=== PATIENT | female | born 1950 | race Caucasian/White ===

== ENCOUNTER 2017-06-14 12:11 | Inpatient (IN) | payer OTHER, MEDICARE ==
[~2017-06-14] VITALS: Ht 167.6 cm; Wt 66.3 kg
[~2017-06-14 12:11] MED LIST: BACT800T5 PO; CLIN1CAP5 PO; LITH300 PO; LOTR5CAP3 PO
[2017-06-14] MEDS ORDERED: ACETAMINOPHEN 325 MG TAB PO PRN (19:30)
[2017-06-14] MEDS ORDERED: ALUMINUM/MAGNESIUM/SIMETH 30 ML CUP PO PRN (19:30)
[2017-06-14] MEDS ORDERED: MAGNESIUM HYDROXIDE SUSP 30 ML CUP PO PRN (19:30)
[2017-06-14 20:10] VITALS: BP 112/68; PULSE 77; RESP 18; TEMP 98.1
[2017-06-14] MEDS: REMOVE OLD NICOTINE PATCH T-DERMAL SCH (20:35)
[2017-06-15 05:48] VITALS: BP 168/88; PULSE 64; RESP 16; TEMP 98.2; O2SAT 98
--- NOTE | 2017-06-15 08:28 | HHI.HP ---
Provisional Diagnosis Admission Date Jun 14, 2017 at 18:55 [place] I. 1. Bipolar disorder, presently mixed, severe with psychotic features with catatonia Rule out catatonia due to some other psychiatric illness Rule out delirium due to general medical condition Rule out neurological illness with psychiatric manifestations such as seizure [place] II. Deferred Certification of Person's Competence To Provide Express and Informed Consent I have personally examined Chika Plata , a person being served at [facility] on, Jun 15, 2017 08:28. Express and informed consent means consent voluntarily given in writing, by a competent person, after sufficient explanation and disclosure of the subject matter involved to enable the person to make a knowing and willful decision without any element of force, fraud, deceit, duress, or other form of constraint or coercion. This person is 18 years of age or older, is not now known to be incompetent to consent to treatment with a guardian advocate, and does not have a health care surrogate or proxy currently making medical treatment decisions. I have found this person to be one of the following: [] Competent to provide express and informed consent, as defined above, for voluntary admission to this facility and is competent to provide express and informed consent for treatment. He/she has the consistent capacity to make well reasoned, willful, and knowing decisions concerning his or her medical or mental health treatment. The person fully and consistently understands the purpose of the admission for examination/placement and is fully capable of personally exercising all rights assured [place] [x] Incompetent to provide express and informed consent to voluntary admission, and this is incompetent to provide express and informed consent to treatment. The person must be transferred to involuntary status and a petition for a guardian advocate filed with the Circuit Court. [] Refusing to provide express and informed consent to voluntary admission but is competent to provide express and informed consent for treatment. The person must be discharged or transferred to involuntary status. Form shall be completed within 24 hours of a person's arrival at the receiving facility and filed in the clinical record of each person: 1. Admitted on a voluntary basis 2. Permitted to provide express and informed consent to his/her own treatment 3. Allowed to transfer from involuntary to voluntary status 4. Prior to permitting a person to consent to his or her own treatment after having been previously found incompetent to consent to treatment. History of Present Illness Capacity: Lacks Capacity Psych Chief Complaint: AMS/Psychosis HPI Ms. Plata is a 66-year-old female with a history of bipolar illness who presents in transfer from [facility]. Documents from [facility] reviewed. Patient apparently presented there initially to the emergency department with AMS, reportedly increasingly "confused, delusional, paranoid" over the past week per family. She was admitted to the inpatient unit at [facility] and evaluated by Dr. Burris who placed patient under a Mckeon Act. Reviewing our EMR, I see no prior psychiatric contact within our system. Patient seen and examined with nurse. Chart reviewed. Case discussed with nursing staff who reports patient has been wandering the unit, staring and largely non-verbal. She slept only 2 hours last night. On my exam, patient is sitting in her room, staring into space. She exhibits some posturing and lip- smacking movements. She is extremely psychomotor slowed. Negativism is present. She produces little spontaneous speech but will try to respond if asked a specific question. When asked why she has come into the hospital, she says, "I want to have" and then trails off. She appears internally preoccupied and endorses AVH of "something" but cannot describe it in any more detail. When I ask about SI/HI, she reports "I'm having some" before trailing off again. She is awake and able to follow some commands but is oriented to person only. Psychiatric interview is severely limited by her current clinical state, and I am unable to obtain meaningful past psychiatric, family, chemical dependency or social history from this patient for this reason. The patient does not verbalize any physical complaints at this time. Obtained collateral from the patient's , Kelton Plata. He notes that the patient has a history of Bipolar disorder and has been decompensating since the beginning of the month. Outpatient psychiatrist Dr. Gomez tried to change her CBZ to Topamax reportedly, but the patient suffered worsening confusion and so the Topamax was tapered off. He then placed the patient back on her previously efficacious lithium after getting the ok from her stabilizing machine operator, Dr. Corey Bay. However, patient has continued to decompensate. Current meds per are Seroquel 200/50/50/200mg, lithium 150mg BID, amlodipine 5mg daily, calcitriol 0.25mg three times per week and Vitamin D 50,000 units every other week, last dose last week. He knows of no history of stroke or seizure in the patient. She does have a history of knee replacement. Left message for patient's outpatient psychiatrist Dr. Gomez with his audio visual secretary. Review of Systems ROS Limitations: Uncooperative, Psychotic, Poor Historian Other Extremely limited ROS because of patient's mental state currently. Past Psych History Psychological trauma history No reported trauma history to me Violence risk - others (6 mos) Indeterminate. If the patient is indeed catatonic, periods of catatonic excitement can be associated with increased risk for violence. Violence risk - self (6 mos) Concern for elevated risk. Self-care deficit is present. Possible suicidal ideation. Psychotic and unpredictable. Substance Abuse History Drugs/Alcohol past 12 months See above Past Family Social History Coded Allergies: amoxicillin (Unverified Allergy, Severe, rash, 03/02/17) clavulanic acid (Unverified Allergy, Severe, rash, 03/02/17) Past Medical History See electronic medical record Active Scripts Clindamycin Hcl (Clindamycin Hcl) 150 Mg Cap, 2 TAB PO Q8H for 7 Days, CAP Prov:Nathan Thornton MD 04/08/15 Sulfamethoxazole-Trimethoprim DS (Bactrim DS) 1 Tab Tab, 1 TAB PO BID for 7 Days , TAB Prov:Nathan Thornton MD 04/08/15 Reported Medications Amlodipine/benazepril 5-20 mg (Lotrel 5-20 mg) 5 - Cap, 0.5 CAP PO DAILY, 0 Refills TAKE 1 HALF DAILY (2.5/10 MG) 04/09/11 [place] Carbonate (Lithotabs) 300 Mg Cap, 300 MG PO DAILY 04/09/11 Current Medications Medications (Trade) Dose Ordered Sig/Laura Route Start Time Stop Time Status Last Admin (Ativan) 1 mg Q6H PRN PO 06/14/17 19:30 Future Hold (Ativan Inj) 1 mg Q6H PRN IM 06/14/17 19:30 Future Hold (Tylenol) 650 mg Q4H PRN PO 06/14/17 19:30 (Milk Of Magnesia Liq) 30 ml DAILY PRN PO 06/14/17 19:30 (Mag-Al Plus Susp Liq) 30 ml Q6H PRN PO 06/14/17 19:30 (Habitrol 21 Mg Patch.24 Hr) 1 patch DAILY T-DERMAL 06/15/17 09:00 Miscellaneous Information 1 HS T-DERMAL 06/14/17 21:00 Family Psych History See above Social History See above Patient's Strengths (min. 2) In a monitored setting. Verbally fluent. Physical Exam Physical examination completed by ED provider at outside hospital. On my examination today, the patient appears to be in no acute physical distress. I note a mild resting hand tremor. She exhibits some posturing and lip-smacking. She does have some negativism and gegenhalten on exam. Waxy flexibility is not present. She does not appear to have any focal weakness in her arms and legs, but it is difficult to get her to cooperate with assessment. EOMI. Labs and vitals reviewed: Vital Signs Vital Signs Date Time Temp Pulse Resp B/P (MAP) Pulse Ox O2 Delivery O2 Flow Rate FiO2 06/15/17 05:48 98.2 64 16 168/88 (114) 98 Lab Results Laboratories from outside hospital reviewed: CBC reveals mild leukocytosis with white blood cell count of 11.5 CMP reveals decreased GFR at 36 Urinalysis unremarkable Urine toxicology positive for benzodiazepines and the patient's reports that she does have some Valium which she takes rarely but may have had a dose prior to presentation Alcohol level undetectable Counce level 0.[address] performed at outside hospital read as "no aggressive focal intra-axial mass, gross large territory acute CVA or acute intracranial hemorrhage" Mental Status Examination Appearance: Disheveled Consciousness: Other (Stuporous) Orientation: Person Motor Activity: Other (Motor exam as above) Assessment & Plan Problem List: (1) Bipolar disorder, current episode mixed, severe, with psychotic features ICD Codes: F31.64 - Bipolar disorder, current episode mixed, severe, with psychotic features Assessment & Plan 66-year-old female with psychiatric history as detailed above who presents in transfer from outside hospital under a Mckeon act. On my examination today, the patient presents with motor symptoms concerning for catatonia. She also appears internally preoccupied, and it is possible there is an underlying psychotic process at play, possibly related to her history of mood disorder. Differential diagnosis is broad and would include BPAD, mixed with psychosis with catatonia; catatonia due to some other cause (e.g. due to a substance or medication); delirium due to GMC (e.g. uremic delirium, occult infection given mild leukocytosis although this may be related to lithium treatment, etc.); neurological disorder (e.g. seizure given the lip smacking). I will plan to admit patient to inpatient unit for safety, observation, stabilization. --Admit inpatient. Transfer to med psych unit. --Involuntary status. I have completed first opinion. Consult for second opinion. Request healthcare surrogate and guardian advocate. --Initiate medical/neurological workup for causes of altered mental status including MRI brain w/o contrast (given decreased GFR), EEG, CBC, CMP, B12, ammonia, HIV, RPR, TSH, ESR, ADOLPH. Check EKG for QTc. --Consult to neurology to evaluate for possible neurological causes of patient' s symptoms --Dr. Sibley has already consulted hospitalist for medical assessment --I will hold psychotropics for now. I would like to speak with Dr. Gomez about recent med changes before initiating regimen. To consider Ativan challenge for possible catatonia. --Continue amlodipine 5mg daily, calcitriol 0.25mg thrice weekly. Plan to order vitamin D supplement when it would be due next week. --PT consult. --Manager Strategic consult. --Seizure/falls precautions. --Vitals q Shift --Counselor to see and obtain collateral --Dispo planning --ELOS: 7-9 days Discharge Planning Pending psychiatric stabilization. Request HC Surrog/Guard Advoc?: Yes Lanre Randall MD Jun 15, 2017 08:28
[2017-06-15] MEDS: NICOTINE 21 MG/24 HR PATCH T-DERMAL SCH (08:30)
[2017-06-15] MEDS: amLODIPine BESYLATE 5 MG TAB PO SCH (09:00)
[2017-06-15 10:07] LABS: BASOPHIL % 0.3 % (0.0-2.0); EOSINOPHIL % 0.5 % (0.0-4.0); HEMATOCRIT 45.6 % (35.0-46.0); HEMO FLAGS DIFF FINAL; LYMPH % 13.4 % (9.0-44.0); LYMPHOCYTE # 1.2 TH/MM3 (1.0-4.8); MEAN CELL VOLUME 87.3 FL (80.0-100.0); MEAN CORPUSCULAR HEMOGLOBIN 30.1 PG (27.0-34.0); MEAN CORPUSCULAR HGB CONC 34.4 % (32.0-36.0); MONO % 7.7 % (0.0-8.0); NEUT % 78.1 % (16.0-70.0); PLATELET COUNT 225 TH/MM3 (150-450); RED BLOOD COUNT 5.23 MIL/MM3 (4.00-5.30); RED CELL DISTRIBUTION WIDTH 14.9 % (11.6-17.2)
[2017-06-15 10:31] LABS: AST (GOT) 15 U/L (15-37); CHLORIDE 112 MEQ/L (98-107); GLOMERULAR FILTRATION RATE 36 ML/MIN (>89); SODIUM (NA) 146 MEQ/L (136-145)
[2017-06-15 10:35] LABS: WESTERGREN SEDIMENTATION RATE 11 mm/hr (0-30)
[2017-06-15 11:03] LABS: ALKALINE PHOSPHATASE 96 U/L (45-117); ALT (GPT) 31 U/L (10-53); ANION GAP 11 MEQ/L (5-15); BICARBONATE 22.6 MEQ/L (21.0-32.0); BLOOD UREA NITROGEN 23 MG/DL (7-18); HDL CHOLESTEROL 71.4 MG/DL (40.0-60.0); LDL CHOLESTEROL 193 MG/DL (0-99); TOTAL BILIRUBIN ADULT 0.8 MG/DL (0.2-1.0)
--- NOTE | 2017-06-15 11:06 | PD.TTN ---
Patient Problems 1. Discharge planning 2. Medication compliance 3. Knowledge deficit 4. Lack of coping skills Progress Toward Goals Provider Present: Dr. Juan David Randall Provider Input: Dr. Randall's treatment team met to discuss treatment plan, discharge, and medication. Patient continues to present catatonic. Patient is being viewed for seizure activity. Patient at this time meets criteria Nurse(s) Input: Patient's nurse Maryjane reports patient is nonverbal, took medication, answered "Yes" eventually to auditory hallucination. Did not elaborate. Psychiatric Counselors Present: NORY Bae Psych Therapist Input: Patient seen in her room sitting on her bed. Patient made poor eye contact. Patient was not able to communicate to this counselor. Patient did make several attempts but was not able to formulate a sentence. Per patient's nurse patient is medication compliant. Patient will remain on unit until further stablization has occurred. Group Spec/RT/OT/DAVIDSON Present: STUART Gardner Group Spec/RT/OT/DAVIDSON Input: Patient is a new admit. Sandee Fierro Jun 15, 2017 11:06
--- NOTE | 2017-06-15 12:20 | RADRPT ---
EXAM DATE/TIME: 06/15/2017 11:53 [place] COMPARISON: No previous studies available for comparison. INDICATIONS : Psychosis. MEDICAL HISTORY : Hypertension. Renal insufficiency. SURGICAL HISTORY : Hysterectomy. Total knee replacement, right. ENCOUNTER: Initial ACUITY: 2 day PAIN SCORE: 0/10 LOCATION: head TECHNIQUE: Multiplanar, multisequence MRI of the brain was performed without contrast. FINDINGS: CEREBRUM: The ventricles are normal for age. No evidence of midline shift, mass lesion, hemorrhage or acute in farction. No extraaxial fluid collections are seen. The pituitary gland and suprasellar cistern are normal in configuration. WHITE MATTER: No significant signal abnormalities are seen in the white matter. POSTERIOR FOSSA: The cerebellum and brainstem are intact. The 4th ventricle is midline. The cerebellopontine angle is unremarkable. The cerebellar tonsils are normal in position. DIFFUSION IMAGING: No focal areas of restricted diffusion are seen. No evidence of acute infarction. EXTRACRANIAL: The visualized portions of the orbits and paranasal sinuses are unremarkable. CONCLUSION: 1. Unremarkable evaluation of the brain. 2. No evidence of acute infarct, hemorrhage, mass or edema. Frederick Reynoso MD on June 15, 2017 at 12:17 Board Certified Radiologist. This report was verified electronically.
[2017-06-15 13:04] VITALS: BP 182/87; PULSE 60; RESP 24; TEMP 98.3; O2SAT 99
--- NOTE | 2017-06-15 14:00 | PD.PSY.CON ---
Provisional Diagnosis Admission Date Jun 14, 2017 at 18:55 [place] I. 1. Bipolar disorder, presently mixed, severe with psychotic features with catatonia Rule out catatonia due to some other psychiatric illness Rule out delirium due to general medical condition Rule out neurological illness with psychiatric manifestations such as seizure [place] II. Deferred History of Present Illness Service Psychiatry Consult Requested By Dr. Randall Reason for Consult Second opinion petition Mckeon act Primary Care Physician Deangelo Stout MD HPI Ms. Plata is a 66-year-old female with a history of bipolar illness who presents in transfer from [facility]. Documents from [facility] reviewed. Patient apparently presented there initially to the emergency department with AMS, reportedly increasingly "confused, delusional, paranoid" over the past week per family. She was admitted to the inpatient unit at [facility] and evaluated by Dr. Burris who placed patient under a Mckeon Act. Reviewing our EMR, I see no prior psychiatric contact within our system. Patient seen and examined with nurse. Chart reviewed. Case discussed with nursing staff who reports patient has been wandering the unit, staring and largely non-verbal. She slept only 2 hours last night. On my exam, patient is sitting in her room, staring into space. She exhibits some posturing and lip- smacking movements. She is extremely psychomotor slowed. Negativism is present. She produces little spontaneous speech but will try to respond if asked a specific question. When asked why she has come into the hospital, she says, "I want to have" and then trails off. She appears internally preoccupied and endorses AVH of "something" but cannot describe it in any more detail. When I ask about SI/HI, she reports "I'm having some" before trailing off again. She is awake and able to follow some commands but is oriented to person only. Psychiatric interview is severely limited by her current clinical state, and I am unable to obtain meaningful past psychiatric, family, chemical dependency or social history from this patient for this reason. The patient does not verbalize any physical complaints at this time. Obtained collateral from the patient's , Kelton Plata. He notes that the patient has a history of Bipolar disorder and has been decompensating since the beginning of the month. Outpatient psychiatrist Dr. Gomez tried to change her CBZ to Topamax reportedly, but the patient suffered worsening confusion and so the Topamax was tapered off. He then placed the patient back on her previously efficacious lithium after getting the ok from her supervisor leaf [employer], Dr. Corey Bay. However, patient has continued to decompensate. Current meds per are Seroquel 200/50/50/200mg, lithium 150mg BID, amlodipine 5mg daily, calcitriol 0.25mg three times per week and Vitamin D 50,000 units every other week, last dose last week. He knows of no history of stroke or seizure in the patient. She does have a history of knee replacement. Left message for patient's outpatient psychiatrist Dr. Gomez with his secretary specialist. 06/15/17 Above note dictated by Dr. Randall reviewed and agreed with. Patient seen in her room with nurse Sascha and medical student rocael, patient laying very still in her bed that appears to be severe psychomotor retardation. Her eyes are open with a straight ahead gaze. She is not responding to my verbal questions. There is very minimal response at all. With this time also patient being prepped for an EEG. Dr. Randall his signed first opinion petition supporting ERN act. I agree. Patient meets criteria for involuntary psychiatric hospitalization under the ERN act. Thus I'll cosign second opinion petition supporting ERN act Past Family Social History Coded Allergies: amoxicillin (Unverified Allergy, Severe, rash, 03/02/17) clavulanic acid (Unverified Allergy, Severe, rash, 03/02/17) Active Scripts Clindamycin Hcl (Clindamycin Hcl) 150 Mg Cap, 2 TAB PO Q8H for 7 Days, CAP Prov:Nathan Thornton MD 04/08/15 Sulfamethoxazole-Trimethoprim DS (Bactrim DS) 1 Tab Tab, 1 TAB PO BID for 7 Days , TAB Prov:Nathan Thornton MD 04/08/15 Reported Medications Amlodipine/benazepril 5-20 mg (Lotrel 5-20 mg) 5 - Cap, 0.5 CAP PO DAILY, 0 Refills TAKE 1 HALF DAILY (2.5/10 MG) 04/09/11 [place] Carbonate (Lithotabs) 300 Mg Cap, 300 MG PO DAILY 04/09/11 Current Medications Medications (Trade) Dose Ordered Sig/Laura Route Start Time Stop Time Status Last Admin (Ativan) 1 mg Q6H PRN PO 06/14/17 19:30 Future hold (Ativan Inj) 1 mg Q6H PRN IM 06/14/17 19:30 Future hold (Tylenol) 650 mg Q4H PRN PO 06/14/17 19:30 (Milk Of Magnesia Liq) 30 ml DAILY PRN PO 06/14/17 19:30 (Mag-Al Plus Susp Liq) 30 ml Q6H PRN PO 06/14/17 19:30 (Habitrol 21 Mg Patch.24 Hr) 1 patch DAILY T-DERMAL 06/15/17 09:00 Miscellaneous Information 1 HS T-DERMAL 06/14/17 21:00 (Norvasc) 5 mg DAILY PO 06/15/17 09:00 06/15/17 09:00 (Rocaltrol) 0.25 mcg MoWeFr PO 06/16/17 10:00 Patient's Strengths (min. 2) In a monitored setting. Verbally fluent. Physical Exam Vital Signs Vital Signs Date Time Temp Pulse Resp B/P (MAP) Pulse Ox O2 Delivery O2 Flow Rate FiO2 06/15/17 13:04 98.3 60 24 182/87 (118) 99 Lab Results Test 06/15/17 09:10 06/15/17 12:44 White Blood Count 9.0 TH/MM3 Red Blood Count 5.23 MIL/MM3 Hemoglobin 15.7 GM/DL Hematocrit 45.6 % Mean Corpuscular Volume 87.3 FL Mean Corpuscular Hemoglobin 30.1 PG Mean Corpuscular Hemoglobin Concent 34.4 % Red Cell Distribution Width 14.9 % Platelet Count 225 TH/MM3 Mean Platelet Volume 9.5 FL Neutrophils (%) (Auto) 78.1 % Lymphocytes (%) (Auto) 13.4 % Monocytes (%) (Auto) 7.7 % Eosinophils (%) (Auto) 0.5 % Basophils (%) (Auto) 0.3 % Neutrophils # (Auto) 7.0 TH/MM3 Lymphocytes # (Auto) 1.2 TH/MM3 Monocytes # (Auto) 0.7 TH/MM3 Eosinophils # (Auto) 0.0 TH/MM3 Basophils # (Auto) 0.0 TH/MM3 CBC Comment DIFF FINAL Differential Comment Erythrocyte Sedimentation Rate 11 mm/hr Blood Urea Nitrogen 23 MG/DL Creatinine 1.47 MG/DL Random Glucose 101 MG/DL Total Protein 7.9 GM/DL Albumin 4.0 GM/DL Calcium Level 10.3 MG/DL Alkaline Phosphatase 96 U/L Aspartate Amino Transf (AST/SGOT) 15 U/L Alanine Aminotransferase (ALT/SGPT) 31 U/L Total Bilirubin 0.8 MG/DL Sodium Level 146 MEQ/L Potassium Level 4.0 MEQ/L Chloride Level 112 MEQ/L Carbon Dioxide Level 22.6 MEQ/L Anion Gap 11 MEQ/L Estimat Glomerular Filtration Rate 36 ML/MIN Triglycerides Level 63 MG/DL Cholesterol Level 277 MG/DL LDL Cholesterol 193 MG/DL HDL Cholesterol 71.4 MG/DL Cholesterol/HDL Ratio 3.87 RATIO Vitamin B12 Level 810 PG/ML Thyroid Stimulating Hormone 3rd Gen 0.425 uIU/ML HIV (1&2) Antibody NEGATIVE Ammonia 24 MCMOL/L [place] Level 0.2 MEQ/L Mental Status Examination Appearance: Appropriate, Disheveled Consciousness: Other (patient awake with absolutely no response to verbal stimuli) Orientation: Person (unable to ascertain at this time due to patient's unresponsiveness) Motor Activity: Other (Motor exam as above) Speech: Other (patient selectively mute at this time) Language: Other (unable to ascertain due to patient's muteness) Fund of Knowledge: Poor (unable to ascertain due to patient's muteness) Attention and Concentration: Other (patient showing no response to verbal questioning) Memory: Impaired (unable to ascertain due to patient's muteness) Mood: Other (patient significantly psychomotor retarded) Affect: Other (patient significantly psychomotor retarded) Thought Process & Associations: Other (unable to ascertain patient selectively mute) Thought Content: Other (unable to ascertain due to patient selectively mute) Hallucination Type: Other (unable to ascertain patient selectively mute) Delusion Type: Other (able to ascertain due to patient being selectively mute) Suicidal Ideation: No (unable to ascertain patient be of) Suicidal Plan: No (unable to ascertain patient moved) Suicidal Intention: No (unable to ascertain patient) Homicidal Ideation: No (and able to ascertain patient mute) Homicidal Plan: No (unable to ascertain patient mute) Homicidal Intention: No (unable to ascertain patient mute) Insight: Poor (unable to ascertain patient mute) Judgment: Poor (unable to ascertain patient mute) Assessment & Plan Problem List: (1) Bipolar disorder, current episode mixed, severe, with psychotic features ICD Codes: F31.64 - Bipolar disorder, current episode mixed, severe, with psychotic features Assessment & Plan Estimated LOS: days Request HC Surrog/Guard Advoc?: Yes Pramod Byers MD Jun 15, 2017 14:00
[2017-06-15] MEDS ORDERED: PILL SPLITTER OTHER PRN (15:00)
[2017-06-15] MEDS: LITHIUM CARBONATE 300 MG TAB PO SCH ×2 (15:00→23:00)
[2017-06-15] MEDS ORDERED: LORazepam 2 MG/ML VIAL IV ONE (15:00)
[2017-06-15] MEDS: QUEtiapine FUMARATE 200 MG TAB PO SCH ×2 (15:00→23:00)
[2017-06-15] MEDS: LORazepam 2 MG/ML VIAL IM PRN (15:32)
--- NOTE | 2017-06-15 16:12 | PD.CONS ---
HPI Service [facility] Hospitalists Consult Requested By Psychiatric team Reason for Consult Assist in management of medical condition Psychotic episode- medical cause? Primary Care Physician Deangelo Stout MD Diagnoses: (1) Bipolar disorder, current episode mixed, severe, with psychotic features History of Present Illness This is a 66 year old female patient with a past medical history which includes hypertension, bipolar disorder, colitis, osteoarthritis, shingles and possible hepatitis C. Patient is currently catatonic and nonverbal information gathered from prior computerized charting as well as discussion with inpatient psychiatrist and outpatient psychiatrist. It appears that patient has been having worsening psychiatric symptoms described in prior charting as a, "downward spiral," over the past month. Seroquel was recently increased from 200 mg at bedtime to 200 mg twice a day with 50 mg in the afternoon. Patient presented to [facility] was placed under [facility] act and then transferred to [facility]. Patient is currently in inpatient psychiatric center with been consulted to assist in medical management of this psychotic episode. Review of Systems ROS Limitations: Clinical Condition, Psychotic, Poor Historian Past Family Social History Past Medical History hypertension, bipolar disorder colitis osteoarthritis shingles and possible hepatitis C Past Surgical History Hysterectomy knee surgery and colonoscopy Reported Medications Amlodipine 5 mg by mouth daily Calcitriol 0.25 mcg 3 times a week [place] 150 mg by mouth twice a day Seroquel 200 mg by mouth every morning, 50 mg by mouth midday and 2 mg by mouth daily at bedtime Vitamin D 1 capsule 2 times a month Allergies: Coded Allergies: amoxicillin (Unverified Allergy, Severe, rash, 03/02/17) clavulanic acid (Unverified Allergy, Severe, rash, 03/02/17) Active Ordered Medications Current Medications Medications (Trade) Dose Ordered Sig/Laura Route Start Time Stop Time Status Last Admin (Ativan) 1 mg Q6H PRN PO 06/14/17 19:30 Future hold (Ativan Inj) 1 mg Q6H PRN IM 06/14/17 19:30 Future hold (Tylenol) 650 mg Q4H PRN PO 06/14/17 19:30 (Milk Of Magnesia Liq) 30 ml DAILY PRN PO 06/14/17 19:30 (Mag-Al Plus Susp Liq) 30 ml Q6H PRN PO 06/14/17 19:30 (Habitrol 21 Mg Patch.24 Hr) 1 patch DAILY T-DERMAL 06/15/17 09:00 Miscellaneous Information 1 HS T-DERMAL 06/14/17 21:00 (Norvasc) 5 mg DAILY PO 06/15/17 09:00 06/15/17 09:00 (Rocaltrol) 0.25 mcg MoWeFr PO 06/16/17 10:00 (Lithotabs) 150 mg Q8H PO 06/15/17 15:00 (SEROquel) 200 mg Q8H PO 06/15/17 15:00 (NS Flush) 2 ml BID IV FLUSH 06/15/17 21:00 (Pill Splitter) 1 ea UNSCH PRN OTHER 06/15/17 15:00 Sodium Chloride 1,000 ml @ 84 mls/hr [id number] IV 06/15/17 16:15 Family History Patient has 2 daughters with bipolar disorder Social History Patient lives at home with Rare EtOH use No reported tobacco use Physical Exam Vital Signs Vital Signs Date Time Temp Pulse Resp B/P (MAP) Pulse Ox O2 Delivery O2 Flow Rate FiO2 06/15/17 13:04 98.3 60 24 182/87 (118) 99 06/15/17 05:48 98.2 64 16 168/88 (114) 98 06/14/17 20:10 98.1 77 18 112/68 (83) Physical Exam GENERAL: This is a well-nourished, well-developed patient, appears catatonic and non-verbal SKIN: No rashes, ecchymoses or lesions. Cool and dry. HEAD: Atraumatic. Normocephalic. No temporal or scalp tenderness. EYES: Eyes closed fluttering noted CARDIOVASCULAR: Regular rate and rhythm RESPIRATORY: Clear to auscultation. Breath sounds equal bilaterally. GASTROINTESTINAL: Abdomen soft, non-tender, nondistended. MUSCULOSKELETAL: Extremities without clubbing, cyanosis, or edema. No joint tenderness, effusion, or edema noted. No calf tenderness. Negative Homans sign bilaterally. NEUROLOGICAL: Catatonic nonverbal. Hyperreflexia noted Laboratory Laboratory Tests Test 06/15/17 09:10 06/15/17 12:44 White Blood Count 9.0 Red Blood Count 5.23 Hemoglobin 15.7 Hematocrit 45.6 Mean Corpuscular Volume 87.3 Mean Corpuscular Hemoglobin 30.1 Mean Corpuscular Hemoglobin Concent 34.4 Red Cell Distribution Width 14.9 Platelet Count 225 Mean Platelet Volume 9.5 Neutrophils (%) (Auto) 78.1 Lymphocytes (%) (Auto) 13.4 Monocytes (%) (Auto) 7.7 Eosinophils (%) (Auto) 0.5 Basophils (%) (Auto) 0.3 Neutrophils # (Auto) 7.0 Lymphocytes # (Auto) 1.2 Monocytes # (Auto) 0.7 Eosinophils # (Auto) 0.0 Basophils # (Auto) 0.0 CBC Comment DIFF FINAL Differential Comment Erythrocyte Sedimentation Rate 11 Blood Urea Nitrogen 23 Creatinine 1.47 Random Glucose 101 Total Protein 7.9 Albumin 4.0 Calcium Level 10.3 Alkaline Phosphatase 96 Aspartate Amino Transf (AST/SGOT) 15 Alanine Aminotransferase (ALT/SGPT) 31 Total Bilirubin 0.8 Sodium Level 146 Potassium Level 4.0 Chloride Level 112 Carbon Dioxide Level 22.6 Anion Gap 11 Estimat Glomerular Filtration Rate 36 Triglycerides Level 63 Cholesterol Level 277 LDL Cholesterol 193 HDL Cholesterol 71.4 Cholesterol/HDL Ratio 3.87 Vitamin B12 Level 810 Thyroid Stimulating Hormone 3rd Gen 0.425 HIV (1&2) Antibody NEGATIVE Ammonia 24 [place] Level 0.2 Result Diagram: 06/15/17 0910 06/15/17 0910 Imaging Last Impressions Brain MRI 06/15/17 0000 Signed Impressions: Service Date/Time: Thursday, June 15, 2017 11:53 - CONCLUSION: 1. Unremarkable evaluation of the brain. 2. No evidence of acute infarct, hemorrhage, mass or edema. Frederick Reynoso MD Assessment and Plan Problem List: (1) Bipolar disorder, current episode mixed, severe, with psychotic features ICD Codes: F31.64 - Bipolar disorder, current episode mixed, severe, with psychotic features Plan: Bipolar disorder current episode mixed severe with psychotic features Records from for Hospital and reviewed UA reviewed did not indicate UTI Currently patient is afebrile with no leukocytosis TSH 0.4-5, vitamin B12 810, ammonia 24, RPR pending, and a pending HIV-1 antibodies negative Patient is currently nonverbal unable to take by mouth intake Will start IV fluids D5 half-normal saline at 84 cc/h Patient appears catatonic. Psychiatry has chosen Ativan trial Patient's symptoms worsened after increasing Seroquel. Also during psychiatric evaluation lip smacking was noted. Recommend holding Seroquel If Ativan trial does not improve current state recommend Cogentin versus Benadryl. Recheck BMP in a.m. Recommended DC IV fluids once patient is able to take by mouth Dr. Ramirez discussed case with outpatient psychiatrist Dr. Gomez Hypertension Resume patient's amlodipine 5 mg by mouth daily when she is able to take by mouth IV Vasotec as needed Monitor blood pressure trend Patient examined. Assessment and plan formulated with Kamilla Maki PA-C. I agree with the above. Pt with bipolar d/o. Under the care of Dr Gomez outpt. Her seroquel had been titrating up. He noted some Tardive dyskinesia sx's in the office. She presented to [place] and moved to [place]. Pt has been in a catatonic state. verbally unreponsive.blepharospams noted. eyes rolled back in head. not following commands. neck supple. possible mild UE cogwheeling. Hyperreflexia noted in all extemities. no babinskin or clonus. No rash or injury. Heart reg. Lung cta. abd s/bs/nd After discussing with doctor Jason...He and dr Randall will give a trial of ativan for possible catatonia related to her bipolar d/o. If that fails I would consider giving some iv benadryl or cogentin for possible seroquel related catatonia. At present I see no evidence for infection , metabolic disturbance, no proof of acute cva. I note neurology is consulted and eeg pending. f/u pending studies. ivf until taking po. prn bp meds ordered. otherwise I see no autonomic instablility at the moment. (2) HTN (hypertension) ICD Codes: I10 - Essential (primary) hypertension Kamilla Maki Jun 15, 2017 16:12 Shaka Ramirez MD Jun 15, 2017 19:39
[2017-06-15] MEDS ORDERED: SODIUM CHLOR 0.45% 1000 ML INJ 1,000 ML IV SCH (16:15)
[2017-06-15] MEDS: DEXT 5%-NACL 0.45% 1000 ML INJ 1,000 ML IV SCH (16:30)
[2017-06-15] MEDS ORDERED: ENALAPRILAT 1.25 MG/ML VIAL IV PUSH PRN (17:45)
[2017-06-15] MEDS ORDERED: cloNIDine HCL 0.1 MG TAB PO PRN (17:45)
--- NOTE | 2017-06-15 19:14 | MB ---
cc: GUILLERMINA ERVIN MD DATE OF CONSULTATION 06/15/17 She is a 66 year old seen in neurological consultation because of altered mentation. She was admitted to the psychiatric unit with confusion and delusional and paranoid behavior. She was previously treated in the hospital in [place]. There is a history of bipolar disorder but apparently no major psychiatric problems before. The only history I observed is what is in the chart. It appears that she has been going downhill for the past month. She follows with her psychiatrist and she was on Carbamazepine and Topamax, then the Topamax was also discontinued. There is a history of [place] usage in the past. Currently, she came in taking Seroquel that appears to be a total of 500 mg a day, lithium 150 twice a day, also on blood pressure medications. Other evaluations reviewed. I spoke to the nursing staff briefly. NEUROLOGIC EXAM: Neurologic exam showed the patient to be asleep but easily awakened. She was in no distress. She established some eye contact, maintained eyes open. She verbalized occasionally a very low level that was very hard to understand her. Initially she said, "I am happy and she came up with this without any obvious inquiry". She could not answer to me about her age, but then at some point she started saying something about "losing children". She also started saying that she has two children, but it was hard to understand and get anymore information from her. Often, she did not finish a phrase. She moved all four extremities spontaneously and also with some request. 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 Her motor exam is grossly nonfocal with some generalized weakness but mild. Reflexes were 1-2+ including the ankles and plantar responses were flexor. IMAGING STUDIES An MRI brain was unremarkable. LABORATORY DATA Other labs reviewed including metabolic data. BUN 23, creatinine 1.47, sodium 146, potassium 4.0, WBC 9.0. ASSESSMENT Acute encephalopathy in association with psychiatric decline for the past few weeks. Labs were reviewed as well as the MRI of brain as discussed. She may have improved with some Ativan, suspiciously, of a semi catatonic state. I will request the CPK as well. Apparently, Seroquel on hold. She is afebrile. Moderately elevated blood pressure. I will follow the neurological course. Thank you for asking us to assist in her care. MD CHERRI Hansen /5:56 PM /6:58 PM
[2017-06-15 19:45] VITALS: BP 168/80; PULSE 68; RESP 17; TEMP 97.7; O2SAT 100
--- NOTE | 2017-06-15 19:59 | EKG ---
Date Performed: 06/15/2017 Time Performed: 17:21:54 PTAGE: 66 years EKG: Baseline artifact present Sinus rhythm NORMAL ECG No significant change from prior electrocardiogram. PREVIOUS TRACING : 03/30/1996 10.22 DOCTOR: Crow Bryant Interpretating Date/Time 06/15/2017 19:57:53
--- NOTE | 2017-06-15 20:24 | MG ---
cc: FREDERICK GRESHAM MD Lab No: [id number] Date: 06/15/17 Age: Sex: F Race: 1950 A 66-year-old female with confusion, speech impairment, bizarre behavior. A lot of ___kinetic chewing artifact noted. Posterior rhythm demonstrates 4-6 Hz activity, a lot of myogenic muscle tension artifact. Limited driving with photic stimulation. Single lead EKG showing sinus rhythm. INTERPRETATION Appearance of at least mild level of encephalopathy with significant amount of myogenic artifact throughout the recording. No obvious epileptic activity. Clinical correlation. MD GUMARO Jolley/ /7:46 PM /8:09 PM
[2017-06-15] MEDS: SODIUM CHLORIDE 0.9% FLUSH 5 ML FLUSH IV FLUSH SCH (21:00)
[2017-06-15] MEDS: REMOVE OLD NICOTINE PATCH T-DERMAL SCH (21:00)
[2017-06-16] MEDS: LORazepam 2 MG/ML VIAL IM PRN ×2 (00:49→11:06)
[2017-06-16] MEDS: DEXT 5%-NACL 0.45% 1000 ML INJ 1,000 ML IV SCH ×2 (04:25→16:20)
[2017-06-16 05:00] VITALS: BP 137/81; PULSE 76; RESP 18; O2SAT 97
[2017-06-16] MEDS: LITHIUM CARBONATE 300 MG TAB PO SCH ×3 (07:00→20:46)
--- NOTE | 2017-06-16 08:02 | HHI.PYPN ---
Subjective Chief Complaint: AMS/Psychosis Remarks Patient seen and examined with nurse. Chart reviewed. I see possible late response to Ativan challenge noted in nursing notes. I note patient was unable to receive evening dose of psychotropics reportedly related to being asleep. Case discussed with nursing staff. Patient's PO intake remains quite poor per nursing staff. On my exam, I find the patient sitting in her room with an uneaten meal tray beside her. She is more interactive today and is asking for something to drink. I have asked nurse to have tech assist patient with taking meals and drinking. Ongoing marked thought blocking noted. She remains disheveled and appears to have a self-care deficit. She is oriented to person and year only. She repeats the beginning of phrases but struggles to complete them, e.g. "I feel like, I feel like, I feel like, I feel like I need something to drink." She denies AVH but remains internally preoccupied. She is unable to deny SI/HI and remains unreliable to contract for safety in her current psychiatric state. She denies side effects from psychotropics. No acute physical complaints. Review of Systems ROS Limitations: Psychotic, Poor Historian Except as stated in HPI: all other systems reviewed are Neg Mental Status Examination Appearance: Disheveled Consciousness: Alert Orientation: Person, Date/Time (year) Motor Activity: Other (Motor exam as below.) Speech: Hesitant, Slow Language: Perseveration Fund of Knowledge: Adequate (Difficult to assess because of psych symptoms.) Attention and Concentration: Inadequate Mood: Other (dysphoric) Affect: Flat Thought Process & Associations: Other (Markedly slowed) Thought Content: Thought blocking Hallucination Type: Other (Denies AVH but appears int stim) Delusion Type: None Suicidal Ideation: No (unreliable to contract for safety) Homicidal Ideation: No (unreliable to contract for safety) Insight: Poor Judgment: Poor Mental Status Exam Remarks Motor exam: Mild bilateral resting hand tremor but no cog-wheeling, no dystonias, no dyskinesias. No UE rigidity. Mild LE increased tone with several beats of clonus, perhaps pathologic clonus, in the ankle L>R. No ocular clonus or hippus. Results Labs Item Value Date Time White Blood Count 9.0 TH/MM3 06/15/17 0910 Hemoglobin 15.7 GM/DL H 06/15/17 0910 Platelet Count 225 TH/MM3 06/15/17 0910 Sodium Level 146 MEQ/L H 06/15/17 0910 Potassium Level 4.0 MEQ/L 06/15/17 0910 Chloride Level 112 MEQ/L H 06/15/17 0910 Carbon Dioxide Level 22.6 MEQ/L 06/15/17 0910 Blood Urea Nitrogen 23 MG/DL H 06/15/17 0910 Creatinine 1.47 MG/DL H 06/15/17 0910 Estimat Glomerular Filtration Rate 36 ML/MIN L 06/15/17 0910 Random Glucose 101 MG/DL 06/15/17 0910 Aspartate Amino Transf (AST/SGOT) 15 U/L 06/15/17 0910 Alanine Aminotransferase (ALT/SGPT) 31 U/L 06/15/17 0910 Alkaline Phosphatase 96 U/L 06/15/17 0910 Ammonia 24 MCMOL/L 06/15/17 1244 Vitamin B12 Level 810 PG/ML 06/15/17 0910 Thyroid Stimulating Hormone 3rd Gen 0.425 uIU/ML 06/15/17 0910 [place] Level 0.2 MEQ/L L 06/15/17 1244 HIV (1&2) Antibody NEGATIVE 06/15/17 0910 Labs reviewed. Decreased GFR and sub-therapeutic lithium level main clinically significant abnormalities. Awaiting HgbA1c, RPR, ADOLPH. Neuro has also ordered CK. Last Impressions Brain MRI 06/15/17 0000 Signed Impressions: Service Date/Time: Thursday, June 15, 2017 11:53 - CONCLUSION: 1. Unremarkable evaluation of the brain. 2. No evidence of acute infarct, hemorrhage, mass or edema. Frederick Reynoso MD EEG read as mild encephalopathy. EKG NSR, QTcH 442ms. Vitals/IOs Vital Signs Date Time Temp Pulse Resp B/P (MAP) Pulse Ox O2 Delivery O2 Flow Rate FiO2 06/16/17 05:00 76 18 137/81 (99) 97 06/15/17 19:45 97.7 Intake and Output 06/16/17 06/16/17 06/17/17 08:00 16:00 00:00 Intake Total 120 ml Balance 120 ml Assessment & Plan Problem List: (1) Bipolar disorder, current episode mixed, severe, with psychotic features ICD Codes: F31.64 - Bipolar disorder, current episode mixed, severe, with psychotic features Assessment & Plan Ddx: BPAD mixed with psychosis +/- catatonia (although catatonia perhaps somewhat less likely as patient is more responsive today, and I do not suspect this is residual effect from single dose of Ativan). Delirium due to GMC (dehydration perhaps, now improved with IVF). Medication side effect (Minimal tremor on exam but LE increased tone and clonus concerning for possible NMS). EEG not supportive of seizure. MRI brain not supportive of structural EMERGENCY DEPARTMENT DIRECTOR lesion. Patient is marginally more responsive today. She has an ongoing self-care deficit as a consequence of her acute illness and is taking poor PO. Condition overall remains tenuous and psychopharmacologic pathway forward is very complex owing to renal impairment on the one hand and concern for possible antipsychotic side effect on the other. --Hold Seroquel for now. Follow-up CK ordered by neuro [update: wnl at 80], and I will check serum iron, which can be decreased in NMS. There is no leukocytosis. BP improved this morning, and there are no other signs of autonomic instability. No fever. --Continue lithium 150mg q8h. Check interval lithium level and BMP tomorrow and continue to trend these values closely given underlying CKD. --Patient is more responsive today, but we still could consider scheduling some parenteral Ativan for catatonia if she lapses back into stuporous state. --Encourage mobilization, encourage PO intake and staff to assist with feeding and hygiene. --Neuro and hospitalist input noted and appreciated. --Continue to monitor on [facility] unit. Continue other meds and care as ordered. --I will return to see patient on afternoon round. Justification for Cont. Inpt. Impairment in self-care. Med changes. Complicating conditions. Very high risk for decompensation in less restrictive environment. Discharge Planning Pending psychiatric stabilization. Original ELOS perhaps a little optimistic, but may still be feasible depending on hospital course over next few days. Request HC Surrog/Guard Advoc?: Yes Lanre Randall MD Jun 16, 2017 08:02
--- NOTE | 2017-06-16 08:29 | HHI.PR ---
Subjective Remarks pt eating breakfast awake but unable to hold conversation. Objective Vitals awake eating unable to finish sentences. mumbles nad. no labored breathing heart reg lung cta abd s/nt ext no edema no blepharospasm today. hyperreflexia. Vital Signs Date Time Temp Pulse Resp B/P (MAP) Pulse Ox O2 Delivery O2 Flow Rate FiO2 06/16/17 05:00 76 18 137/81 (99) 97 06/15/17 19:45 97.7 68 17 168/80 (109) 100 06/15/17 13:04 98.3 60 24 182/87 (118) 99 Result Diagram: 06/15/17 0910 06/15/17 0910 Imaging Last Impressions Brain MRI 06/15/17 0000 Signed Impressions: Service Date/Time: Thursday, June 15, 2017 11:53 - CONCLUSION: 1. Unremarkable evaluation of the brain. 2. No evidence of acute infarct, hemorrhage, mass or edema. Frederick Reynoso MD A/P Problem List: (1) Bipolar disorder, current episode mixed, severe, with psychotic features ICD Codes: F31.64 - Bipolar disorder, current episode mixed, severe, with psychotic features Plan: Bipolar disorder current episode mixed severe with psychotic features Pt with bipolar d/o. Under the care of Dr Gomez outpt. Her seroquel had been titrating up. He noted some Tardive dyskinesia sx's in the office. She presented to [place] and moved to [place]. Pt had been in a catatonic state. during our initial evaluation pt was verbally unreponsive. blepharospams noted. eyes rolled back in head. not following commands. neck supple. possible mild UE cogwheeling. Hyperreflexia noted in all extemities. no babinskin or clonus. No rash or injury. Heart reg. Lung cta. abd s/bs/nd After discussing with doctor Jason...He and dr Randall will give a trial of ativan for possible catatonia related to her bipolar d/o. If that fails I would consider giving some iv benadryl or cogentin for possible seroquel related catatonia. At present I see no evidence for infection , metabolic disturbance, no proof of acute cva. I note neurology is consulted.. eeg neg for sz. otherwise I see no autonomic instablility at the moment. Records from [facility] and reviewed UA reviewed did not indicate UTI. uds only benzos..she took vallium x 1. TSH 0.4-5, vitamin B12 810, ammonia 24, RPR pending, and a pending HIV-1 antibodies negative today pt more awake. eating breakfast. still mumbling and not completing her sentences. At present her condition appears related to her underlying psych illness vs medication. Again still no obvious metabolic/infectious abnormality to explain. no evidence of cva or sz. will support with ivf until taking adequate po. po/iv prn bp meds ordered. (2) HTN (hypertension) ICD Codes: I10 - Essential (primary) hypertension Status: Chronic Shaka Ramirez MD Jun 16, 2017 08:29
[2017-06-16] MEDS: SODIUM CHLORIDE 0.9% FLUSH 5 ML FLUSH IV FLUSH SCH ×2 (09:00→20:10)
[2017-06-16] MEDS: amLODIPine BESYLATE 5 MG TAB PO SCH (09:00)
[2017-06-16] MEDS: NICOTINE 21 MG/24 HR PATCH T-DERMAL SCH (09:00)
[2017-06-16] MEDS: CALCITRIOL 0.25 MCG CAP PO SCH (09:33)
[2017-06-16 17:39] LABS: HEMOGLOBIN A1a 0.9 %; HEMOGLOBIN Ao 85.9 %; HEMOGLOBIN F 0.9 %; HEMOGLOBIN LA1C 1.8 %; HEMOGLOBIN P3 3.9 %
[2017-06-16 17:45] VITALS: BP 135/69; PULSE 82; RESP 17; TEMP 98.3; O2SAT 95
--- NOTE | 2017-06-16 19:43 | HHI.PR ---
Review/Management Daily Summary 06/16 much better face expression this evening, eating and talking some simple words and phrases moves limbs well and walking per staff likely psychiatric related encephalopathy, no other neuro intervention please call prn Subjective Subjective Comments No acute events reported No headache No chest pain No dyspnea Active Medications Current Medications Medications (Trade) Dose Ordered Sig/Laura Route Start Time Stop Time Status Last Admin (Ativan) 1 mg Q6H PRN PO 06/14/17 19:30 Future hold (Ativan Inj) 1 mg Q6H PRN IM 06/14/17 19:30 Future hold 06/16/17 11:06 (Tylenol) 650 mg Q4H PRN PO 06/14/17 19:30 (Milk Of Magnesia Liq) 30 ml DAILY PRN PO 06/14/17 19:30 (Mag-Al Plus Susp Liq) 30 ml Q6H PRN PO 06/14/17 19:30 (Habitrol 21 Mg Patch.24 Hr) 1 patch DAILY T-DERMAL 06/15/17 09:00 Miscellaneous Information 1 HS T-DERMAL 06/14/17 21:00 (Norvasc) 5 mg DAILY PO 06/15/17 09:00 06/16/17 09:00 (Rocaltrol) 0.25 mcg MoWeFr PO 06/16/17 10:00 06/16/17 09:33 (Lithotabs) 150 mg Q8H PO 06/15/17 15:00 06/16/17 15:00 (SEROquel) 200 mg Q8H PO 06/15/17 15:00 Future Hold 06/15/17 15:00 (NS Flush) 2 ml BID IV FLUSH 06/15/17 21:00 (Pill Splitter) 1 ea UNSCH PRN OTHER 06/15/17 15:00 Dextrose/Sodium Chloride 1,000 ml @ 84 mls/hr [id number] IV 06/15/17 16:30 06/16/17 16:20 (Catapres) 0.1 mg Q6H PRN PO 06/15/17 17:45 (Vasotec Inj) 1.25 mg Q6H PRN IV PUSH 06/15/17 17:45 Allergies Allergies Coded Allergies amoxicillin (Unverified Allergy, Severe, rash, 03/02/17) clavulanic acid (Unverified Allergy, Severe, rash, 03/02/17) Exam I&O / VS 06/16/17 06/16/17 06/17/17 15:00 23:00 07:00 Intake Total 540 ml 660 ml Balance 540 ml 660 ml Intake Oral 540 ml 660 ml # Voids 3 Vital Signs Date Time Temp Pulse Resp B/P (MAP) Pulse Ox O2 Delivery O2 Flow Rate FiO2 06/16/17 17:45 98.3 82 17 135/69 (91) 95 06/16/17 05:00 76 18 137/81 (99) 97 06/15/17 19:45 97.7 68 17 168/80 (109) 100 Objective Micro and Labs Laboratory Tests Test 06/16/17 07:00 Iron Level 59 Total Creatine Kinase 80 Shen Lopez MD Jun 16, 2017 19:43
[2017-06-16] MEDS: REMOVE OLD NICOTINE PATCH T-DERMAL SCH (20:12)
[2017-06-17] MEDS: DEXT 5%-NACL 0.45% 1000 ML INJ 1,000 ML IV SCH (04:15)
[2017-06-17 06:04] VITALS: BP 140/75; PULSE 69; RESP 17; TEMP 97.6; O2SAT 99
[2017-06-17] MEDS: LITHIUM CARBONATE 300 MG TAB PO SCH ×3 (06:17→23:12)
[2017-06-17] MEDS: amLODIPine BESYLATE 5 MG TAB PO SCH (08:57)
[2017-06-17] MEDS: NICOTINE 21 MG/24 HR PATCH T-DERMAL SCH (08:59)
[2017-06-17] MEDS: SODIUM CHLORIDE 0.9% FLUSH 5 ML FLUSH IV FLUSH SCH ×2 (08:59→21:00)
[2017-06-17 10:39] LABS: BICARBONATE 25.3 MEQ/L (21.0-32.0); POTASSIUM 3.4 MEQ/L (3.5-5.1)
--- NOTE | 2017-06-17 12:05 | HHI.PYPN ---
Subjective Chief Complaint: AMS/Psychosis Remarks Patient seen and examined with nurse. Daughter and also at the bedside and patient has no objections to their remaining present for the interview. Chart reviewed. Case discussed with nursing staff. On my examination today, patient once again seems more responsive. She is feeding herself. 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 She seems to feel quite guilty about this. She tells me that she needs to "repent my sins for not telling the truth. " does note that patient is a [employer] but agrees that patient's current guilt is likely in excess of what might be expected from patient normally. She denies SI. Denies AVH. No reported side effects from medications. No physical complaints. Extensive discussion with patient and family regarding pharmacotherapeutic options going forward as well as hospital course so far. After discussion of the R/B/A of pharmacotherapeutic options, we agree to a trial of low-dose Zyprexa at bedtime for probable psychotic symptoms in the setting of patient's mood episode. Review of Systems ROS Limitations: Psychotic, Poor Historian Except as stated in HPI: all other systems reviewed are Neg Mental Status Examination Appearance: Disheveled Consciousness: Alert Orientation: Person, Place ([facility]), Date/Time (May,) Motor Activity: Other (no hand tremor, no cogwheeling, no dystonias, no dyskinesias noted. No other motor abnormalities appreciated although the patient does remain psychomotor slowed.) Speech: Slow Language: Perseveration (a little less so) Fund of Knowledge: Adequate Attention and Concentration: Adequate Mood: Other (remains dysphoric) Affect: Blunt Thought Process & Associations: Other (slowed) Thought Content: Thought blocking Hallucination Type: None Delusion Type: Other (morbid guilt) Suicidal Ideation: No (unreliable to contract for safety) Homicidal Ideation: No (unreliable to contract for safety) Insight: Poor Judgment: Poor Results Labs Test 06/17/17 09:52 Blood Urea Nitrogen 23 MG/DL Creatinine 1.53 MG/DL Random Glucose 125 MG/DL Calcium Level 9.9 MG/DL Sodium Level 143 MEQ/L Potassium Level 3.4 MEQ/L Chloride Level 109 MEQ/L Carbon Dioxide Level 25.3 MEQ/L Anion Gap 9 MEQ/L Estimat Glomerular Filtration Rate 34 ML/MIN [place] Level 0.6 MEQ/L Labs reviewed. GFR stable. [place] level at the lower end of therapeutic range , but this is likely artificially elevated given that the lab was obtained about 3.5 hours after last dose. Vitals/IOs Vital Signs Date Time Temp Pulse Resp B/P (MAP) Pulse Ox O2 Delivery O2 Flow Rate FiO2 06/17/17 06:04 97.6 69 17 140/75 (96) 99 Intake and Output 06/17/17 06/17/17 06/18/17 08:00 16:00 00:00 Intake Total 520 ml Balance 520 ml Assessment & Plan Problem List: (1) Bipolar disorder, current episode mixed, severe, with psychotic features ICD Codes: F31.64 - Bipolar disorder, current episode mixed, severe, with psychotic features Assessment & Plan Add Zyprexa 2.5mg qHS for psychotic symptoms. Continue lithium as ordered, but we will likely titrate this tomorrow for additional mood stabilization and to bring level within therapeutic range. Continue to trend lithium level and BMP. Neuro and hospitalist input appreciated. Continue to monitor on the medical psychiatric unit. Continue other medications and care as ordered. Justification for Cont. Inpt. Med changes. Risk for decompensation and less restrictive environment. Impairment in self-care. Impairment in reality construction. Discharge Planning Pending psychiatric stabilization Request HC Surrog/Guard Advoc?: Yes Lanre Randall MD Jun 17, 2017 12:05
[2017-06-17 18:14] VITALS: BP 152/74; PULSE 75; RESP 16; TEMP 98.3; O2SAT 98
[2017-06-17] MEDS ORDERED: OLANZapine 2.5 MG TAB PO SCH (21:00)
[2017-06-17] MEDS: REMOVE OLD NICOTINE PATCH T-DERMAL SCH (21:00)
[2017-06-18 06:11] VITALS: BP 147/86; PULSE 76; RESP 16; TEMP 97.8; O2SAT 99
[2017-06-18] MEDS: LITHIUM CARBONATE 300 MG TAB PO SCH ×3 (07:00→21:04)
--- NOTE | 2017-06-18 07:57 | HHI.PYPN ---
Subjective Chief Complaint: AMS/Psychosis Remarks Patient seen and examined. Chart reviewed. Case discussed in treatment team. On my examination today, the patient is able to speak in complete sentences. She tells me "I'm ok, but I'd like to reach my family to tell them I love them and hope to see them." She says that she has been trying to remember her family 's birthdays. Mood is "ok" although the patient continues to report morbid guilt. She notes "I feel very apologetic for not being able to say." She denies any SI or violent thoughts. Remains psychomotor slowed, although this is improving. Grooming likewise improved. Denies side effects from medications. No physical complaints. Review of Systems ROS Limitations: Psychotic, Poor Historian Except as stated in HPI: all other systems reviewed are Neg Mental Status Examination Appearance: Disheveled (grooming improving) Consciousness: Alert Orientation: Person, Place ([facility]), Date/Time (June,) Motor Activity: Other (remains a little psychomotor slowed but no hand tremor, no cogwheeling, no other motor abnormalities noted.) Speech: Slow Language: Adequate Fund of Knowledge: Adequate Attention and Concentration: Adequate Mood: Other ("okay") Affect: Blunt (somewhat dysphoric) Thought Process & Associations: Other (slowed but less so today versus yesterday) Thought Content: Thought blocking (lessening) Hallucination Type: None Delusion Type: Other (ongoing morbid guilt) Suicidal Ideation: No (unreliable to contract for safety) Homicidal Ideation: No (unreliable to contract for safety) Insight: Poor Judgment: Poor Results Labs Test 06/17/17 09:52 Blood Urea Nitrogen 23 MG/DL Creatinine 1.53 MG/DL Random Glucose 125 MG/DL Calcium Level 9.9 MG/DL Sodium Level 143 MEQ/L Potassium Level 3.4 MEQ/L Chloride Level 109 MEQ/L Carbon Dioxide Level 25.3 MEQ/L Anion Gap 9 MEQ/L Estimat Glomerular Filtration Rate 34 ML/MIN [place] Level 0.6 MEQ/L Labs reviewed. Hypokalemia repleted. Vitals/IOs Vital Signs Date Time Temp Pulse Resp B/P (MAP) Pulse Ox O2 Delivery O2 Flow Rate FiO2 06/18/17 06:11 97.8 76 16 147/86 (106) 99 Intake and Output 06/18/17 06/18/17 06/19/17 08:00 16:00 00:00 Intake Total 0 ml Balance 0 ml Assessment & Plan Problem List: (1) Bipolar disorder, current episode mixed, severe, with psychotic features ICD Codes: F31.64 - Bipolar disorder, current episode mixed, severe, with psychotic features Assessment & Plan Patient remains severely decompensated with respect to her presenting psychiatric illness, although she is improving with treatment. Titrate Zyprexa to 5 mg at bedtime to target psychotic symptoms. Follow-up lithium level and BMP in the morning. Weekend rounding physician, please consider titrating lithium by 150mg (i.e. to 600mg total daily dose) if level remains subtherapeutic so long as renal function has not significantly worsened. I will check another lithium level and BMP Wednesday morning. I have asked the nursing staff to encourage mobilization. Continue to monitor on the inpatient unit. Continue other medications and care as ordered. Justification for Cont. Inpt. Impairment in self-care. Medication changes. High risk for decompensation in less restrictive environment. Discharge Planning Pending psychiatric stabilization Request HC Surrog/Guard Advoc?: Yes Lanre Randall MD Jun 18, 2017 07:57
[2017-06-18] MEDS: NICOTINE 21 MG/24 HR PATCH T-DERMAL SCH (09:00)
[2017-06-18] MEDS: SODIUM CHLORIDE 0.9% FLUSH 5 ML FLUSH IV FLUSH SCH ×2 (09:00→20:53)
[2017-06-18] MEDS ORDERED: POTASSIUM CHLORIDE 20 MEQ CONTROLLED RELEASE TAB PO ONE (09:00)
[2017-06-18] MEDS: CALCITRIOL 0.25 MCG CAP PO SCH (09:33)
[2017-06-18] MEDS: amLODIPine BESYLATE 5 MG TAB PO SCH (09:33)
--- NOTE | 2017-06-18 16:01 | PD.TTN ---
Patient Problems 1. Discharge planning 2. Medication compliance 3. Knowledge deficit 4. Lack of coping skills Progress Toward Goals Provider Present: Dr. Juan David Randall Provider Input: Dr. Randall's treatment team met to discuss treatment plan, discharge, and medication. Patient continues to present catatonic. Patient is being viewed for seizure activity. Patient at this time meets criteria Nurse(s) Input: Patient's nurse Maryjane reports patient is nonverbal, took medication, answered "Yes" eventually to auditory hallucination. Did not elaborate. Psychiatric Counselors Present: Sandee Fierro [facility] Psych Therapist Input: Patient seen in her room sitting on her bed. Patient made poor eye contact. Patient was not able to communicate to this counselor. Patient did make several attempts but was not able to formulate a sentence. Per patient's nurse patient is medication compliant. Patient will remain on unit until further stablization has occurred. Group Spec/RT/OT/DAVIDSON Present: STUART Gardner Group Spec/RT/OT/DAVIDSON Input: Patient is a new admit. Adalgisa Tam [facility] Jun 18, 2017 16:01
[2017-06-18 18:00] VITALS: BP 154/87; PULSE 87; RESP 16; TEMP 98.2; O2SAT 100
[2017-06-18] MEDS: REMOVE OLD NICOTINE PATCH T-DERMAL SCH (20:53)
[2017-06-18] MEDS: OLANZapine 5 MG TAB PO SCH (21:03)
[2017-06-19 06:03] VITALS: BP 161/90; PULSE 81; RESP 17; TEMP 98; O2SAT 98
[2017-06-19] MEDS: LITHIUM CARBONATE 300 MG TAB PO SCH ×3 (07:00→21:35)
[2017-06-19] MEDS: amLODIPine BESYLATE 5 MG TAB PO SCH (08:04)
[2017-06-19] MEDS: NICOTINE 21 MG/24 HR PATCH T-DERMAL SCH (08:04)
[2017-06-19] MEDS: SODIUM CHLORIDE 0.9% FLUSH 5 ML FLUSH IV FLUSH SCH ×2 (08:04→21:00)
[2017-06-19 08:38] LABS: BICARBONATE 28.8 MEQ/L (21.0-32.0); POTASSIUM 3.6 MEQ/L (3.5-5.1)
--- NOTE | 2017-06-19 17:17 | HHI.PYPN ---
Subjective Chief Complaint: AMS/Psychosis Remarks Pt seen and discussed with staff. She is improving but still exhibits disorganization, thought blocking and delayed responses. [place] is therapeutic. She is compliant with and tolerating medications. No SI/HI Mental Status Examination Appearance: Disheveled (grooming improving) Consciousness: Alert Orientation: Person, Place ([facility]), Date/Time (month) Motor Activity: Normal gait Speech: Slow Language: Perseveration Fund of Knowledge: Adequate Attention and Concentration: Other (fair) Memory: Impaired Mood: Anxious, Other ("okay") Affect: Anxious Thought Process & Associations: Disorganized Thought Content: Thought blocking Hallucination Type: None Delusion Type: Other (ongoing morbid guilt) Suicidal Ideation: No Suicidal Plan: No Suicidal Intention: No Homicidal Ideation: No Homicidal Plan: No Homicidal Intention: No Insight: Poor Judgment: Poor Results Labs Test 06/19/17 07:13 Blood Urea Nitrogen 21 MG/DL Creatinine 1.48 MG/DL Random Glucose 120 MG/DL Calcium Level 10.2 MG/DL Sodium Level 142 MEQ/L Potassium Level 3.6 MEQ/L Chloride Level 107 MEQ/L Carbon Dioxide Level 28.8 MEQ/L Anion Gap 6 MEQ/L Estimat Glomerular Filtration Rate 35 ML/MIN [place] Level 0.6 MEQ/L Vitals/IOs Vital Signs Date Time Temp Pulse Resp B/P (MAP) Pulse Ox O2 Delivery O2 Flow Rate FiO2 06/19/17 06:03 98.0 81 17 161/90 (113) 98 Intake and Output 06/19/17 06/19/17 06/20/17 08:00 16:00 00:00 Intake Total 120 ml 540 ml 240 ml Balance 120 ml 540 ml 240 ml Assessment & Plan Problem List: (1) Bipolar disorder, current episode mixed, severe, with psychotic features ICD Codes: F31.64 - Bipolar disorder, current episode mixed, severe, with psychotic features Assessment & Plan Continue current tx plan. Estimated LOS: days Justification for Cont. Inpt. psychosis Request HC Surrog/Guard Advoc?: Yes Monica Bernabe MD Jun 19, 2017 17:17
[2017-06-19 18:00] VITALS: BP 154/82; PULSE 71; RESP 17; TEMP 98
[2017-06-19] MEDS: REMOVE OLD NICOTINE PATCH T-DERMAL SCH (21:00)
[2017-06-19] MEDS: OLANZapine 5 MG TAB PO SCH (21:02)
[2017-06-19] MEDS: LORazepam 1 MG TAB PO PRN (21:02)
[2017-06-20 06:28] VITALS: BP 149/77; PULSE 77; RESP 16; TEMP 97.8; O2SAT 99
[2017-06-20] MEDS: LITHIUM CARBONATE 300 MG TAB PO SCH ×3 (07:00→20:44)
[2017-06-20] MEDS: NICOTINE 21 MG/24 HR PATCH T-DERMAL SCH (07:03)
[2017-06-20] MEDS: SODIUM CHLORIDE 0.9% FLUSH 5 ML FLUSH IV FLUSH SCH ×3 (07:03→20:47)
[2017-06-20] MEDS: amLODIPine BESYLATE 5 MG TAB PO SCH (07:46)
[2017-06-20 17:15] VITALS: BP 163/77; PULSE 88; RESP 17; TEMP 98.1; O2SAT 99
--- NOTE | 2017-06-20 18:33 | HHI.PYPN ---
Subjective Chief Complaint: AMS/Psychosis Remarks PT seen and discussed with staff. Pt is compliant with medications and treatment. Pt's thought process is more organized and thought blocking while present is decreased. Less paranoia. NO SI/HI Mental Status Examination Appearance: Disheveled (grooming improving) Consciousness: Alert Orientation: Person, Place ([place]), Date/Time (month) Motor Activity: Normal gait Speech: Slow Language: Perseveration Fund of Knowledge: Adequate Attention and Concentration: Other (fair) Memory: Impaired Mood: Anxious, Other ("okay") Affect: Anxious Thought Process & Associations: Disorganized Thought Content: Thought blocking (decreased) Hallucination Type: None Delusion Type: Paranoid Suicidal Ideation: No Suicidal Plan: No Suicidal Intention: No Homicidal Ideation: No Homicidal Plan: No Homicidal Intention: No Insight: Poor Judgment: Poor Results Vitals/IOs Vital Signs Date Time Temp Pulse Resp B/P (MAP) Pulse Ox O2 Delivery O2 Flow Rate FiO2 06/20/17 17:15 98.1 88 17 163/77 (105) 99 Intake and Output 06/20/17 06/20/17 06/21/17 08:00 16:00 00:00 Intake Total 600 ml 360 ml 240 ml Balance 600 ml 360 ml 240 ml Assessment & Plan Problem List: (1) Bipolar disorder, current episode mixed, severe, with psychotic features ICD Codes: F31.64 - Bipolar disorder, current episode mixed, severe, with psychotic features Assessment & Plan Pt improving. Continue current tx plan. Estimated LOS: days Justification for Cont. Inpt. impairments in reality testing and thought process Request HC Surrog/Guard Advoc?: Yes Monica Bernabe MD Jun 20, 2017 18:33
[2017-06-20] MEDS: REMOVE OLD NICOTINE PATCH T-DERMAL SCH (19:43)
[2017-06-20] MEDS: OLANZapine 5 MG TAB PO SCH (20:45)
[2017-06-21] MEDS: LITHIUM CARBONATE 300 MG TAB PO SCH ×3 (05:53→22:12)
[2017-06-21 06:07] VITALS: BP 159/88; PULSE 98; RESP 16; TEMP 97.6; O2SAT 98
[2017-06-21 07:45] LABS: BICARBONATE 27.3 MEQ/L (21.0-32.0); POTASSIUM 3.6 MEQ/L (3.5-5.1)
[2017-06-21] MEDS: SODIUM CHLORIDE 0.9% FLUSH 5 ML FLUSH IV FLUSH SCH ×2 (08:14→20:27)
[2017-06-21] MEDS: NICOTINE 21 MG/24 HR PATCH T-DERMAL SCH (08:14)
[2017-06-21] MEDS: amLODIPine BESYLATE 5 MG TAB PO SCH (08:16)
[2017-06-21] MEDS: CALCITRIOL 0.25 MCG CAP PO SCH (08:16)
--- NOTE | 2017-06-21 08:30 | HHI.PYPN ---
Subjective Chief Complaint: AMS/Psychosis Remarks Patient seen and examined with nurse. Chart reviewed. Case discussed with nursing staff. Patient reportedly ruminating on guilty themes over weekend but was noted to improve with respect to thought process. On my exam, patient continues to exhibit some slowed thought process and thought blocking. Mood is described as "well" and the patient denies ongoing morbid guilt. However, she is unable to convincingly deny SI, and when asked about thoughts of self-harm she offers only "not really" in reply. Unclear if this is vague thought process as a consequence of resolving thought disorder (patient answers question about hallucinating in the same manner) or true ambivalence regarding SI. Denies side effects from medications. Complains of chronic low-back pain. No other physical complaints. Review of Systems ROS Limitations: Poor Historian Except as stated in HPI: all other systems reviewed are Neg Mental Status Examination Appearance: Appropriate Consciousness: Alert Orientation: Person, Place (at least) Motor Activity: Other (Mild resting hand tremor, ?chronic. No cog-wheeling or other motor abnormalities appreciated.) Speech: Slow Language: Perseveration (lessening) Fund of Knowledge: Adequate Attention and Concentration: Other (fair) Memory: Impaired Mood: Other ("well") Affect: Blunt Thought Process & Associations: Other (Slowed) Thought Content: Thought blocking (decreasing) Hallucination Type: None ("not really") Delusion Type: None Suicidal Ideation: No ("not really") Suicidal Plan: No Suicidal Intention: No Homicidal Ideation: No Homicidal Plan: No Homicidal Intention: No Insight: Poor (improving) Judgment: Poor (improving) Results Labs Test 06/21/17 06:00 Blood Urea Nitrogen 20 MG/DL Creatinine 1.53 MG/DL Random Glucose 126 MG/DL Calcium Level 10.3 MG/DL Sodium Level 141 MEQ/L Potassium Level 3.6 MEQ/L Chloride Level 107 MEQ/L Carbon Dioxide Level 27.3 MEQ/L Anion Gap 7 MEQ/L Estimat Glomerular Filtration Rate 34 ML/MIN [place] Level 0.9 MEQ/L Labs reviewed. Renal function stable. [place] level drawn <10min after dose administered, and so I suspect this is essentially a trough level. Vitals/IOs Vital Signs Date Time Temp Pulse Resp B/P (MAP) Pulse Ox O2 Delivery O2 Flow Rate FiO2 06/21/17 06:07 97.6 98 16 159/88 (111) 98 Intake and Output 06/21/17 06/21/17 06/22/17 08:00 16:00 00:00 Intake Total 480 ml Output Total 1 ml Balance 479 ml Assessment & Plan Problem List: (1) Bipolar disorder, current episode mixed, severe, with psychotic features ICD Codes: F31.64 - Bipolar disorder, current episode mixed, severe, with psychotic features Assessment & Plan Titrate Zyprexa to 7.5mg qHS to try to improve residual thought disorder. Continue lithium as ordered with plans to check Li level and BMP Wednesday. Lidoderm patch for back pain. Continue to monitor on inpatient unit. Continue other meds and care as ordered. Justification for Cont. Inpt. Med changes. Resolving impairment in self-care. Monitoring for impairment in safety. Risk for decompensation in less restrictive setting. Discharge Planning Anticipate discharge middle of the week. I will discuss case with counselor. Request HC Surrog/Guard Advoc?: Yes Lanre Randall MD Jun 21, 2017 08:30
[2017-06-21] MEDS: LIDOCAINE HCL 5% PATCH T-DERMAL SCH (09:00)
[2017-06-21 18:00] VITALS: BP 169/80; PULSE 92; RESP 18; TEMP 97.6
[2017-06-21] MEDS: LORazepam 1 MG TAB PO PRN (20:25)
[2017-06-21] MEDS: REMOVE OLD LIDOCAINE PATCH T-DERMAL SCH (21:00)
[2017-06-21] MEDS: REMOVE OLD NICOTINE PATCH T-DERMAL SCH (21:00)
[2017-06-21] MEDS: OLANZapine 2.5 MG TAB PO SCH (22:12)
[2017-06-22 05:59] VITALS: BP 138/72; PULSE 118; RESP 20; TEMP 97.8; O2SAT 100
[2017-06-22] MEDS: LITHIUM CARBONATE 300 MG TAB PO SCH ×3 (06:07→22:31)
--- NOTE | 2017-06-22 07:55 | HHI.PYPN ---
Subjective Chief Complaint: AMS/Psychosis Remarks Patient seen and examined. Chart reviewed. Case discussed in treatment team. On my exam, patient continues to exhibit thought blocking, which is slowly improving. Mood is "a little bit low." I ask about feelings of morbid guilt or other affective symptoms of depression, to which patient replies "feelings of , feelings of, feelings of." She perseverates in this way for some time, and it is therefore difficult to ascertain whether she is still having these feelings. She denies any suicidal or homicidal ideation. Denies any AVH. Complains of some dry mouth from medications. Also complains of constipation; no BM x 2 days per patient but still passing flatus. No other med side effects or physical complaints. Spoke with following his visitation. He feels patient is improving. He would like to have her home soon. He is planning to hire a JAVA APPLICATION ENGINEER/Lindsay Elizondo to come in to assist patient while she convalesces, and he is receptive to my ordering home nursing as well if this is covered by her insurer. I have linked with counselor for discharge planning. Tentative plan for d/c home, perhaps with home health, Wednesday. Review of Systems ROS Limitations: Poor Historian Except as stated in HPI: all other systems reviewed are Neg Mental Status Examination Appearance: Appropriate Consciousness: Alert Orientation: Person, Place (at least) Motor Activity: Other (No new abnormal motor movements noted.) Speech: Slow Language: Perseveration (lessening) Fund of Knowledge: Adequate Attention and Concentration: Adequate Memory: Unremarkable (no deficits noted) Mood: Other ("a little down") Affect: Blunt Thought Process & Associations: Other (Slowed) Thought Content: Thought blocking (slowly decreasing) Hallucination Type: None (Denies AVH) Delusion Type: None Suicidal Ideation: No Suicidal Plan: No Suicidal Intention: No Homicidal Ideation: No Homicidal Plan: No Homicidal Intention: No Insight: Fair Judgment: Adequate (fair) Results Labs Labs reviewed. No new labs. Vitals/IOs Vital Signs Date Time Temp Pulse Resp B/P (MAP) Pulse Ox O2 Delivery O2 Flow Rate FiO2 06/22/17 05:59 97.8 118 20 138/72 (94) 100 Intake and Output 06/22/17 06/22/17 06/23/17 08:00 16:00 00:00 Intake Total 120 ml Balance 120 ml Assessment & Plan Problem List: (1) Bipolar disorder, current episode mixed, severe, with psychotic features ICD Codes: F31.64 - Bipolar disorder, current episode mixed, severe, with psychotic features Assessment & Plan Continue lithium and Zyprexa as ordered. [place] level and BMP ordered for the morning. Bowel regimen. Biotene p.r.n. dry mouth. Continue to monitor on an inpatient unit. Continue other medications and care as ordered. Justification for Cont. Inpt. Final discharge planning. Discharge Planning As above, possible discharge home tomorrow, perhaps with home health. Case d/w counselor. Request HC Surrog/Guard Advoc?: Yes Lanre Randall MD Jun 22, 2017 07:55
[2017-06-22] MEDS ORDERED: BISACODYL EC 5 MG TABEC PO PRN (08:00)
[2017-06-22] MEDS: SODIUM CHLORIDE 0.9% FLUSH 5 ML FLUSH IV FLUSH SCH ×2 (08:27→20:22)
[2017-06-22] MEDS: amLODIPine BESYLATE 5 MG TAB PO SCH (08:30)
[2017-06-22] MEDS: LIDOCAINE HCL 5% PATCH T-DERMAL SCH (08:30)
[2017-06-22] MEDS: DOCUSATE SODIUM 100 MG CAP PO SCH ×2 (08:30→20:22)
[2017-06-22] MEDS: NICOTINE 21 MG/24 HR PATCH T-DERMAL SCH (08:34)
--- NOTE | 2017-06-22 13:51 | HHI.FF ---
Face to Face Verification Diagnosis: (1) Bipolar disorder, current episode mixed, severe, with psychotic features Home Health Nursing Order: Signs/symptoms of disease process Medication education-adverse effect Nursing assessment with vital signs Instructions: Home psychiatric nursing. I have seen patient Chika Plata on 06/22/17. My clinical findings support the need for the requested home health care services because: Need for psychosocial assistance I certify that my clinical findings support that this patient is homebound because: Need for psychosocial assistance Lanre Randall MD Jun 22, 2017 13:51
[2017-06-22 18:00] VITALS: BP 157/90; PULSE 79; RESP 20; TEMP 98; O2SAT 100
[2017-06-22] MEDS: OLANZapine 2.5 MG TAB PO SCH (20:22)
[2017-06-22] MEDS: REMOVE OLD NICOTINE PATCH T-DERMAL SCH (20:24)
[2017-06-22] MEDS: REMOVE OLD LIDOCAINE PATCH T-DERMAL SCH (20:24)
[2017-06-23] MEDS: LORazepam 1 MG TAB PO PRN ×2 (00:22→05:30)
[2017-06-23] MEDS: LITHIUM CARBONATE 300 MG TAB PO SCH (06:10)
[2017-06-23 06:25] VITALS: BP 163/78; PULSE 80; RESP 18; TEMP 97.8; O2SAT 99
[2017-06-23] MEDS: NICOTINE 21 MG/24 HR PATCH T-DERMAL SCH (09:00)
[2017-06-23] MEDS: SODIUM CHLORIDE 0.9% FLUSH 5 ML FLUSH IV FLUSH SCH (09:00)
[2017-06-23] MEDS: amLODIPine BESYLATE 5 MG TAB PO SCH (09:54)
[2017-06-23] MEDS: CALCITRIOL 0.25 MCG CAP PO SCH (09:54)
[2017-06-23] MEDS: DOCUSATE SODIUM 100 MG CAP PO SCH (09:54)
[2017-06-23] MEDS: LIDOCAINE HCL 5% PATCH T-DERMAL SCH (09:54)
[2017-06-23 10:27] LABS: BICARBONATE 27.6 MEQ/L (21.0-32.0); POTASSIUM 3.6 MEQ/L (3.5-5.1)
[2017-06-23] MEDS ORDERED: OLAN2.5T7 PO (11:05)
[2017-06-23] MEDS ORDERED: AMLO5 PO (11:05)
[2017-06-23] MEDS ORDERED: DOCU1CAP39 PO (11:06)
[2017-06-23] MEDS ORDERED: LITH300T3 PO (11:06)
[2017-06-23] MEDS ORDERED: CALC.25 PO (11:06)
--- NOTE | 2017-06-23 15:25 | HHI.DS ---
Psychiatry Discharge Summary Inpatient Psychiatric care?: Yes Advance Directive: No Reason Not Provided: Patient is nonverbal at this time Mental Health AdvanceDirective: No Health Care Proxy: No Admission Admission Date Jun 14, 2017 at 18:55 Admission Diagnosis: (1) Bipolar disorder, current episode mixed, severe, with psychotic features ICD Code: F31.64 - Bipolar disorder, current episode mixed, severe, with psychotic features Brief History Ms. Plata is a 66-year-old female with a history of bipolar illness who presents in transfer from [facility]. Documents from [facility] reviewed. Patient apparently presented there initially to the emergency department with AMS, reportedly increasingly "confused, delusional, paranoid" over the past week per family. She was admitted to the inpatient unit at [facility] and evaluated by Dr. Burris who placed patient under a [place] Act. Reviewing our EMR, I see no prior psychiatric contact within our system. Patient seen and examined with nurse. Chart reviewed. Case discussed with nursing staff who reports patient has been wandering the unit, staring and largely non-verbal. She slept only 2 hours last night. On my exam, patient is sitting in her room, staring into space. She exhibits some posturing and lip- smacking movements. She is extremely psychomotor slowed. Negativism is present. She produces little spontaneous speech but will try to respond if asked a specific question. When asked why she has come into the hospital, she says, "I want to have" and then trails off. She appears internally preoccupied and endorses AVH of "something" but cannot describe it in any more detail. When I ask about SI/HI, she reports "I'm having some" before trailing off again. She is awake and able to follow some commands but is oriented to person only. Psychiatric interview is severely limited by her current clinical state, and I am unable to obtain meaningful past psychiatric, family, chemical dependency or social history from this patient for this reason. The patient does not verbalize any physical complaints at this time. Tobacco Use In Past 30 Days: Refused To Answer Alcohol Use: Never Hospital Course Patient was admitted to a locked, inpatient psychiatric unit. A general medical and neurological consultation were obtained. Appropriate precautions were in place throughout patient's hospital stay. Patient was seen and examined daily on the unit by psychiatry and also visited by counselor. Psychotropic medications were adjusted. Patient had improvement in presenting psychiatric symptomatology. There was no evidence of any suicidality or homicidality on the inpatient unit. Patient remained in good behavioral control. She was compliant with medications. Her oral intake improved while on the unit, and she was taking 100% of the majority of her meals in the several days prior to discharge. On the day of discharge: Patient seen and examined. Chart reviewed. Case discussed with nurse. Patient slept poorly overnight, perhaps due to anxiety about wanting to go home. She was no significant behavioral problem otherwise. Case discussed with counselor, who has made the necessary arrangements for home health care and has worked with for additional support services in the home. Counselor and I spoke with over the phone. He would like to have the patient return home today. He has no safety concerns about patient returning home. He has secured the home of potential means of harm to self/others. On my examination today, patient is requesting discharge from the inpatient psychiatric unit today. She is well groomed and appears to be attending to basic needs. She denies suicidal or homicidal ideation, intent or plan and contracts for safety. She denies audiovisual hallucinations. She denies command auditory hallucinations. Morbid guilt seems significantly attenuated today, and the patient only makes some vague allusion to needing to "make amends." She continues to exhibit some mild thought blocking, but this is considerably improved versus admission. Mood is described as "improved" and I can elicit no severe depressive symptoms or hypomanic/manic symptoms. She denies side effects from medications. She has no physical complaints. Suicide and violence risk assessment both suggests lower imminent risk at time of discharge. The patient appears to be attending to basic needs. The patient does not meet criteria for ongoing involuntary psychiatric hospitalization at this time. She is requesting discharge from the inpatient psychiatric unit today. I have offered to retain her on the unit for additional days for monitoring, but she has declined. She does have ample resources in the community, a supportive , and now home health. Patient is to be discharged home with home health today into 's care with psychiatric follow-up as arranged by counselor. Patient is also to follow-up with primary care and with nephrology. I have counseled the patient regarding warning signs for need to return to the psychiatric emergency room as part of the general safety plan. Results Blood Pressure 163 / 78 Vital Signs Date Time Temp Pulse Resp B/P (MAP) Pulse Ox O2 Delivery O2 Flow Rate FiO2 06/23/17 06:25 97.8 80 18 163/78 (106) 99 Laboratory Tests Test 06/21/17 06:00 06/23/17 08:25 Blood Urea Nitrogen 20 MG/DL (7-18) 22 MG/DL (7-18) Creatinine 1.53 MG/DL (0.50-1.00) 1.38 MG/DL (0.50-1.00) Random Glucose 126 MG/DL (74-106) 140 MG/DL (74-106) Calcium Level 10.3 MG/DL (8.5-10.1) 10.2 MG/DL (8.5-10.1) Estimat Glomerular Filtration Rate 34 ML/MIN (>89) 38 ML/MIN (>89) Laboratory Results Test 06/15/17 09:10 06/23/17 08:25 Cholesterol Level 277 MG/DL (120-200) HDL Cholesterol 71.4 MG/DL (40.0-60.0) Hemoglobin A1c 5.0 % (4.3-6.0) LDL Cholesterol 193 MG/DL (0-99) Triglycerides Level 63 MG/DL (42-150) [place] Level 0.8 MEQ/L (0.5-1.5) Summary of Procedures EEG read as mild encephalopathy without epileptiform activity. Imaging Last Impressions Brain MRI 06/15/17 0000 Signed Impressions: Service Date/Time: Thursday, June 15, 2017 11:53 - CONCLUSION: 1. Unremarkable evaluation of the brain. 2. No evidence of acute infarct, hemorrhage, mass or edema. Frederick Reynoso MD Pending results at discharge: No Medications # of Antipsychotic meds at D/C: 1 Approp Antipsych med options 1 - Minimum of three failed multiple trials of monotherapy. 2 - Documented plan to taper to monotherapy due to previous use of multiple meds OR cross-taper in progress at D/C. 3 - Documentation of augmentation of Clozapine. 4 - Justification other than those listed in allowable values 1-3, document here : Discharge Discharge Date: Jun 23, 2017 Discharge Diagnosis: (1) Bipolar I disorder, most recent episode mixed, in partial remission Diagnosis: Principal ICD Code: F31.77 - Bipolar disorder, in partial remission, most recent episode mixed Pt Condition on Discharge: Stable Discharge Disposition: Disch w/ Home Health Serv Discharge Instructions Diet Instructions: As Tolerated, No Restrictions Activities you can perform: Weight Bearing as Luis Scheduled Appointment: [facility] Appointment Date: Jun 30, 2017 Appointment Time: 08:20am New Orders: BASIC METABOLIC PROF - 3-5 Days LITHIUM (LI) - 3-5 Days New Medications: Amlodipine (Norvasc) 5 Mg Tab 5 MG PO DAILY for Blood Pressure Management for 15 Days, #15 TAB 1 Refill Calcitriol (Rocaltrol) 0.25 Mcg Cap 0.25 MCG PO MoWeFr for Health for 1 Day, CAP 0 Refills Order is to update med rec only. Pt has supply at home. Docusate Sodium (Dok) 100 Mg Cap 100 MG PO BID for Constipation for 15 Days, #30 CAP 1 Refill [place] Carbonate (B[place]imore Carbonate) 300 Mg Tab 150 MG PO Q8H for Mental Health for 15 Days, #23 TAB 1 Refill Olanzapine (Olanzapine) 2.5 Mg Tab 7.5 MG PO HS for Mental Health for 15 Days, TAB 1 Refill Discontinued Medications: Amlodipine/benazepril 5-20 mg (Lotrel 5-20 mg) 5 - Cap 0.5 CAP PO DAILY, 0 Refills TAKE 1 HALF DAILY (2.5/10 MG) Clindamycin Hcl (Clindamycin Hcl) 150 Mg Cap 2 TAB PO Q8H for 7 Days, CAP [place] Carbonate (Lithotabs) 300 Mg Cap 300 MG PO DAILY Sulfamethoxazole-Trimethoprim DS (Bactrim DS) 1 Tab Tab 1 TAB PO BID for 7 Days, TAB Discharge Time > 30 minutes Mental Status Examination Appearance: Appropriate Consciousness: Alert Orientation: x4 Motor Activity: Other (psychomotor slowing considerably decreased versus admission. No hand tremor, no dystonia, no dyskinesia noted. No other motoric abnormalities noted.) Speech: Slow (improved versus admission) Language: Adequate Fund of Knowledge: Adequate Attention and Concentration: Adequate Memory: Unremarkable (no deficits noted) Mood: Other ("improved" versus admission) Affect: Blunt (more reactive versus admission) Thought Process & Associations: Other (remains a little slowed but improved versus admission) Thought Content: Thought blocking (presently mild. Improved versus admission.) Hallucination Type: None Delusion Type: None Suicidal Ideation: No Suicidal Plan: No Suicidal Intention: No Homicidal Ideation: No Homicidal Plan: No Homicidal Intention: No Insight: Fair Judgment: Adequate (fair) Discharge/Advance Care Plan Health Problems: (1) Bipolar disorder, current episode mixed, severe, with psychotic features Goals to promote your health * To prevent worsening of your condition and complications * To maintain your health at the optimal level Directions to meet your goals Take your medications as prescribed Follow your dietary instruction Follow activity as directed Keep your appointments as scheduled Take your immunizations and boosters as scheduled If your symptoms worsen call your PCP, if no PCP go to Urgent Care Center or Emergency Room For 08/02 questions related to your inpatient stay or results of tests pending at discharge, please contact Dr. Lanre Randall at Smoking is Dangerous to Your Health. Avoid second hand smoking Lanre Randall MD Jun 23, 2017 15:25
== END 2017-06-23 12:26 | disposition home or self-care (01) | DRG 885 ==
LOC: H260 18:55 → H4EA 06-15 13:00
PROVIDERS: ADMIT Psychiatry & Neurology Psychiatry; ATTEND Psychiatry & Neurology Psychiatry
DX: F31.64 Bipolar disorder, current episode mixed, severe, with psychotic features (principal); F05 Delirium due to known physiological condition; G24.01 Drug induced subacute dyskinesia; E86.0 Dehydration; I10 Essential (primary) hypertension; K59.00 Constipation, unspecified; N28.9 Disorder of kidney and ureter, unspecified; Z96.651 Presence of right artificial knee joint
CPT/HCPCS: 70551; 76937; 80048; 80053; 80061; 80178; 82140; 82550; 82607; 83036; 83540; 84443; 85025; 85652; 86038; 86592; 86703; 93005; 95819; J2060